=== PATIENT | male | born 1970 | race Hispanic/Latino ===

== ENCOUNTER → 2024-09-09 | Outpatient (REF) | payer BC | LOC: DX 09:09 | PROVIDERS: ATTEND Surgery | DX: N32.1 Vesicointestinal fistula (principal); K40.91 Unilateral inguinal hernia, without obstruction or gangrene, recurrent | CPT/HCPCS: 74280 ==

== ENCOUNTER 2024-12-16 09:30 | Inpatient (IN) | payer BC ==
[2024-12-14 12:39] LABS: BASOPHILS % 0.6 % (0.0-1.0); EOSINOPHILS % 5.1 % (0.0-6.0); LYMPHOCYTES % 27.5 % (18.0-39.1); MONOCYTES % 9.2 % (4.4-11.3); NEUTROPHILS % 57.1 % (38.7-80.0); RED CELL DISTRIBUTION WIDTH 13.3 % (11.7-14.4)
[2024-12-14 13:07] LABS: EST GLOMERULAR FILTRATION RATE 105.0 ML/MIN (>=60)
[~2024-12-16] VITALS: Ht 165.1 cm; Wt 77.2 kg
[2024-12-16] VITALS (19 sets, daily range): BP systolic 86–116; BP diastolic 55–77; PULSE 62–85; RESP 7–19; TEMP 96.4–98.2; O2SAT 93–100
[~2024-12-16 09:30] MED LIST: ALBUTEROL IH; AMLODIPINE BESY10 MG PO; ATORVASTATIN CA10 MG PO; BROMFED DM COU118 ML PO; ERYTHROMYCIN PO; FARXIGA10 MG PO; FENOFIBRATE134 MG PO; FENOFIBRATE145 MG PO; GLUCOTROL XL10 MG PO; IBUPROFEN200 MG PO; LOW DOSE ASPIRI81 MG PO; METFORMIN HCL500 MG PO; METOPROLOL SUCC25 MG PO; NEOMYCIN SULFA500 MG PO; OMEPRAZOLE40 MG PO; OZEMPIC2 MG/0.75 SQ; PROMETHAZI6.25 MG/5 PO; TYLENOL ARTHRITIS PO
[2024-12-16] MEDS ORDERED: ROPIVACAINE/EPI/CLONIDINE/KET 50 ML SYRINGE INJ ONE (12:00)
[2024-12-16] MEDS: SODIUM CHLORIDE 0.9% 1000ML 1,000 ML ONE (12:08)
[2024-12-16] MEDS: PIPERACILLIN/TAZOBACTAM 3.375 GM VIAL ONE (12:09)
[2024-12-16] MEDS: CLINDAMYCIN 600MG / 50ML 50 ML IV ONE (12:10)
[2024-12-16] MEDS ORDERED: PROPOFOL IV EMULSION 10 MG/ML 20 ML VIAL ONE (13:11)
[2024-12-16] MEDS ORDERED: MIDAZOLAM HCL 2 MG/2 ML VIAL ONE (13:11)
[2024-12-16] MEDS ORDERED: ACETAMINOPHEN 1000 MG/100 ML 100 ML IV ONE (13:11)
[2024-12-16] MEDS ORDERED: FENTANYL CITRATE/PF 100MCG/2 ML INJ ONE (13:11)
[2024-12-16] MEDS ORDERED: ROCURONIUM BROMIDE 1 ML IV ONE ×2 (13:11→14:58)
[2024-12-16] MEDS ORDERED: PHENYLEPHRINE HCL 1% 10 MG/ML VIAL ONE (15:13)
[2024-12-16] MEDS ORDERED: ONDANSETRON HCL INJ 2MG/ML 2ML 2 MG/ML VIAL IV PRN (17:45)
[2024-12-16] MEDS ORDERED: NALOXONE HCL INJ 0.4 MG/ML AMP IV PRN (17:45)
[2024-12-16] MEDS ORDERED: HYDROMORPHONE 0.2MG/ML-SOD CHL 30ML PCA SYRINGE IV PRN (17:45)
[2024-12-16] MEDS ORDERED: ACETAMINOPHEN 1000 MG/100 ML IV PRN (17:45)
[2024-12-16] MEDS: INSULIN REGULAR, HUMAN 100 UNIT/1 ML SQ SCH (18:00)
[2024-12-16] MEDS: HYDROMORPHONE 1MG/1ML INJ IV ONE (18:24)
[2024-12-16] MEDS: HYDROMORPHONE 1MG/1ML INJ ONE (18:25)
[2024-12-16] MEDS: ONDANSETRON HCL INJ 2MG/ML 2ML 2 MG/ML VIAL IV PRN (18:25)
[2024-12-16] MEDS: HYDROMORPHONE 0.2MG/ML-SOD CHL 30ML PCA SYRINGE IV ONE (18:30)
[2024-12-16 20:19] LABS: BASOPHILS % 0.2 % (0.0-1.0); EOSINOPHILS % 0.1 % (0.0-6.0); LYMPHOCYTES % 10.7 % (18.0-39.1); MONOCYTES % 7.7 % (4.4-11.3); NEUTROPHILS % 81.1 % (38.7-80.0); RED CELL DISTRIBUTION WIDTH 13.2 % (11.7-14.4)
[2024-12-16 20:35] LABS: EST GLOMERULAR FILTRATION RATE 106.0 ML/MIN (>=60)
[2024-12-16] MEDS: METOPROLOL SUCCINATE 25 MG TAB XL PO SCH (21:00)
[2024-12-16] MEDS: SODIUM CHLORIDE 0.9% 1000ML 1,000 ML IV SCH (22:31)
[2024-12-16] MEDS: SODIUM CHLORIDE 0.9% 250ML IRRIG IR SCH (22:31)
[2024-12-17] VITALS (50 sets, daily range): BP systolic 105–133; BP diastolic 67–84; PULSE 66–114; RESP 9–21; TEMP 97.1–99; O2SAT 89–100
[2024-12-17 07:29] LABS: BASOPHILS % 0.1 % (0.0-1.0); EOSINOPHILS % 0.0 % (0.0-6.0); LYMPHOCYTES % 4.3 % (18.0-39.1); MONOCYTES % 8.9 % (4.4-11.3); NEUTROPHILS % 86.5 % (38.7-80.0); RED CELL DISTRIBUTION WIDTH 13.2 % (11.7-14.4)
[2024-12-17 07:59] LABS: EST GLOMERULAR FILTRATION RATE 108.0 ML/MIN (>=60)
[2024-12-17] MEDS: HYDROMORPHONE 0.2MG/ML-SOD CHL 30ML PCA SYRINGE IV PRN (12:03)
[2024-12-17] MEDS: SODIUM CHLORIDE 0.9% 250ML 250 ML IV ONE (15:55)
[2024-12-18] VITALS (56 sets, daily range): BP systolic 105–155; BP diastolic 62–97; PULSE 73–107; RESP 8–23; TEMP 98.4–101.1; O2SAT 90–99
[2024-12-18 07:30] LABS: BASOPHILS % 0.2 % (0.0-1.0); EOSINOPHILS % 0.5 % (0.0-6.0); LYMPHOCYTES % 10.4 % (18.0-39.1); MONOCYTES % 9.8 % (4.4-11.3); NEUTROPHILS % 78.5 % (38.7-80.0); RED CELL DISTRIBUTION WIDTH 13.3 % (11.7-14.4)
[2024-12-18 07:48] LABS: EST GLOMERULAR FILTRATION RATE 110.0 ML/MIN (>=60)
[2024-12-18] MEDS: ACETAMINOPHEN 1000 MG/100 ML IV STA (19:50)
[2024-12-18] MEDS: BISACODYL 10 MG SUPP PR SCH (20:57)
[2024-12-19] VITALS (65 sets, daily range): BP systolic 101–172; BP diastolic 68–107; PULSE 72–111; RESP 7–25; TEMP 98–99.5; O2SAT 94–100
[2024-12-19 05:09] LABS: BASOPHILS % 0.3 % (0.0-1.0); EOSINOPHILS % 1.2 % (0.0-6.0); LYMPHOCYTES % 10.7 % (18.0-39.1); MONOCYTES % 8.2 % (4.4-11.3); NEUTROPHILS % 78.6 % (38.7-80.0); RED CELL DISTRIBUTION WIDTH 12.9 % (11.7-14.4)
[2024-12-19 05:38] LABS: EST GLOMERULAR FILTRATION RATE 112.0 ML/MIN (>=60)
[2024-12-19] MEDS: BISACODYL 10 MG SUPP PR SCH (11:22)
[2024-12-19] MEDS: HYDROMORPHONE 1MG/1ML INJ IV PRN (20:53)
[2024-12-20] VITALS (11 sets, daily range): BP systolic 111–153; BP diastolic 78–98; PULSE 80–109; RESP 16–20; TEMP 97.3–98.4; O2SAT 93–97
[2024-12-20] MEDS: HYDROCODONE/APAP 7.5MG-325MG 1 EA TAB PO PRN (14:23)
[2024-12-21] VITALS (10 sets, daily range): BP systolic 114–135; BP diastolic 71–92; PULSE 77–98; RESP 17–19; TEMP 97.7–98.2; O2SAT 95–98
[2024-12-21] MEDS: INSULIN REGULAR, HUMAN 100 UNIT/1 ML SQ SCH (21:00)
[2024-12-22] VITALS (11 sets, daily range): BP systolic 120–145; BP diastolic 76–88; PULSE 80–91; RESP 16–19; TEMP 96.6–98.4; O2SAT 94–98
[2024-12-22 10:25] LABS: BASOPHILS % 0.6 % (0.0-1.0); EOSINOPHILS % 4.6 % (0.0-6.0); LYMPHOCYTES % 10.5 % (18.0-39.1); MONOCYTES % 6.7 % (4.4-11.3); NEUTROPHILS % 75.3 % (38.7-80.0); RED CELL DISTRIBUTION WIDTH 13.2 % (11.7-14.4)
[2024-12-22 10:58] LABS: EST GLOMERULAR FILTRATION RATE 112.0 ML/MIN (>=60)
[2024-12-23 04:48] VITALS: BP 124/85; PULSE 72; RESP 16; TEMP 98.1; O2SAT 98
[2024-12-23 08:00] VITALS: BP 136/89; PULSE 73; RESP 17; TEMP 97.5; O2SAT 96
[2024-12-23 09:00] VITALS: BP 136/89; PULSE 73; RESP 17; TEMP 97.5; O2SAT 96
[2024-12-23 10:34] VITALS: PULSE 70; RESP 18; O2SAT 95
[2024-12-23 12:00] VITALS: BP 137/85; PULSE 76; RESP 17; TEMP 97.9; O2SAT 94
[2024-12-23] MEDS: ONDANSETRON HCL 4 MG ORAL DISINTEGRATING TAB PO PRN (12:49)
[2024-12-24] MEDS ORDERED: PANTOPRAZOLE SOD 40 MG TABEC PO SCH (07:30)
== END 2024-12-23 13:56 | disposition home or self-care (01) | DRG 654 ==
LOC: OR 09:30 → PACU V 15:20 → ICU 19:01 → MED/SURG 12-19 16:51
PROVIDERS: ADMIT Surgery; ATTEND Surgery
PROC: 0DBN0ZZ Excision of Sigmoid Colon, Open Approach (ICD-10-PCS; 2024-12-16)
PROC: 0TQB0ZZ Repair Bladder, Open Approach (ICD-10-PCS; 2024-12-16)
PROC: BT1B1ZZ Fluoroscopy of Bladder and Urethra using Low Osmolar Contrast (ICD-10-PCS; 2024-12-16)
PROC: BT141ZZ Fluoroscopy of Kidneys, Ureters and Bladder using Low Osmolar Contrast (ICD-10-PCS; 2024-12-16)
PROC: 0D1E0ZE Bypass Large Intestine to Large Intestine, Open Approach (ICD-10-PCS; 2024-12-16)
PROC: 0YQ60ZZ Repair Left Inguinal Region, Open Approach (ICD-10-PCS; 2024-12-16)
PROC: 0TBB0ZZ Excision of Bladder, Open Approach (ICD-10-PCS; principal; 2024-12-16 13:31)
PROC: 0T9B8ZX Drainage of Bladder, Via Natural or Artificial Opening Endoscopic, Diagnostic (ICD-10-PCS; 2024-12-16 13:31)
DX: N32.1 Vesicointestinal fistula (principal); K57.92 Diverticulitis of intestine, part unspecified, without perforation or abscess without bleeding; N13.8 Other obstructive and reflux uropathy; N30.20 Other chronic cystitis without hematuria; I10 Essential (primary) hypertension; E11.9 Type 2 diabetes mellitus without complications; K40.90 Unilateral inguinal hernia, without obstruction or gangrene, not specified as recurrent; E66.9 Obesity, unspecified; R19.7 Diarrhea, unspecified; N35.912 Unspecified bulbous urethral stricture, male; N40.1 Benign prostatic hyperplasia with lower urinary tract symptoms; N32.89 Other specified disorders of bladder; Z87.440 Personal history of urinary (tract) infections; Z87.891 Personal history of nicotine dependence
CPT/HCPCS: 36415; 71046; 74420; 80048; 80053; 82948; 85025; 86850; 86900; 86920; 87086; 88302; 88304; 88307; 93005; 94799; 99252; J1171; J2250; J2371; J2405; J2470; J2543; J7030; Q0162

== ENCOUNTER → 2025-01-13 | Outpatient (REF) | payer BC ==
[~2025-01-13] MED LIST changes: +IOPAMIDOL 370 MG/ML 100 ML INFUS..BTL INJ ONE; +SODIUM CHLORIDE 0.9% 500ML 0 ML ONE; +SODIUM CHLORIDE 0.9% 500ML 500 ML ONE
== END ==
LOC: CT 15:46
PROVIDERS: ATTEND Urology
DX: T19.0XXA Foreign body in urethra, initial encounter (principal); N39.0 Urinary tract infection, site not specified
CPT/HCPCS: 72194; J7040; Q9967